=== PATIENT | female | born 1950 | race Caucasian/White ===

== ENCOUNTER 2022-12-13 12:52 | Outpatient (CLI) | payer MEDICARE | END 2022-12-13 12:53 | disposition home or self-care (01) | LOC: CSHCP 12:52 | PROVIDERS: ATTEND Internal Medicine Critical Care Medicine | DX: J44.9 Chronic obstructive pulmonary disease, unspecified (principal) | CPT/HCPCS: 94060; 94726; 94729; 94760 ==